=== PATIENT | male | born 1960 | race Caucasian/White ===

== ENCOUNTER 2022-02-07 06:12 | Day surgery (SDC) | payer BC ==
[2022-02-02 09:50] VITALS: BMI 22.5
[2022-02-07] MEDS ORDERED: Lidocaine 1% MPF 2 ML VIAL ONE (07:20)
[2022-02-07] MEDS ORDERED: Midazolam HCl 2 mg/2 ml Vial ONE (08:15)
[2022-02-07] MEDS ORDERED: Fentanyl 100 MCG/2 ML VIAL ONE ×5 (08:15→12:15)
[2022-02-07] MEDS ORDERED: ceFAZolin (BATCH) 2 GM/100 ML BAG ONE (09:46)
[2022-02-07] MEDS ORDERED: ePHEDrine 50 MG/ML VIAL ONE (10:04)
[2022-02-07] MEDS ORDERED: Ropivacaine 0.5% HCl/PF (150 MG/30 ML VIAL) ONE (10:04)
[2022-02-07] MEDS ORDERED: Ondansetron PF 4 MG/2 ML Vial ONE (10:04)
[2022-02-07] MEDS ORDERED: Ketorolac Tromethamine 30 MG/ML VIAL ONE (10:04)
[2022-02-07] MEDS ORDERED: Dexamethasone 20 MG/5 ML VIAL ONE (10:04)
[2022-02-07] MEDS ORDERED: PROPOFOL 200 MG/20 ML VIAL ONE (10:04)
[2022-02-07] MEDS ORDERED: Lidocaine 1% PF 5 ML VIAL ONE (10:04)
[2022-02-07] MEDS ORDERED: Bupivacaine 0.75% 10 ML VIAL ONE (11:26)
[2022-02-07] MEDS ORDERED: Lidocaine 1% w/Epinephrine 1:100K 20 ML VIAL ONE (11:26)
[2022-02-07] MEDS ORDERED: Promethazine HCl 25 MG/ML VIAL IM PRN ×2 (11:55→15:49)
[2022-02-07] MEDS ORDERED: Ondansetron HCl/PF 4 MG/2 ML Vial IVP PRN (11:55)
[2022-02-07] MEDS ORDERED: Promethazine HCl 25 MG/ML VIAL IVPB PRN (11:55)
[2022-02-07] MEDS ORDERED: Milk Of Magnesia 30 ML UDCUP PO PRN (15:49)
[2022-02-07] MEDS ORDERED: Morphine 4 MG/ML VIAL SLOW IVP PRN ×2 (15:49→16:17)
[2022-02-07] MEDS ORDERED: HYDROcodone/Acetaminophen 5/325 mg Tablet PO PRN ×2 (15:49)
[2022-02-07] MEDS ORDERED: Bisacodyl 10 MG SUPP PR PRN (15:49)
[2022-02-07] MEDS ORDERED: Ondansetron PF 4 MG/2 ML Vial IVP PRN (15:49)
[2022-02-07] MEDS ORDERED: Fentanyl 100 MCG/2 ML VIAL SLOW IVP PRN (15:49)
[2022-02-07] MEDS ORDERED: traMADol HCl 50 MG TAB PO PRN ×2 (15:49)
[2022-02-07] MEDS ORDERED: ceFAZolin 2 GM/Dextrose 50 ML 2 GM in Premix Bag 1 BAG IVPB SCH (16:00)
[2022-02-07] MEDS ORDERED: Warfarin Sodium 10 MG TAB PO SCH ×2 (17:00→17:50)
[2022-02-07] MEDS ORDERED: Warfarin Sodium 1 MG TAB PO SCH (17:45)
[2022-02-07] MEDS ORDERED: CEFAZOLIN 2 GM, Admixture Fee 1 EACH in Sodium Chloride 0.9% 100 ML IVPB SCH (18:45)
[2022-02-07] MEDS: Enoxaparin Sodium 80 MG/0.8 ML SYRINGE SC SCH (20:14)
[2022-02-08] MEDS ORDERED: CEFAZOLIN 2 GM, Admixture Fee 1 EACH in Sodium Chloride 0.9% 100 ML IVPB SCH (02:00)
[2022-02-08 05:16] VITALS: BP 100/62; TEMP 98.2
[2022-02-08 06:24] LABS: #Lymphocytes 1.5 thou/uL (1.20-3.40); #Monocytes 0.9 thou/uL (0.11-0.59); #Neutrophils 9.2 thou/uL (1.40-6.50); %Basophils 0.3 % (0.0-1.0); %Eosinophils 0.2 % (0.0-10.0); %Lymphocytes 12.7 % (21.0-51.0); %Monocytes 7.3 % (0.0-10.0); %Neutrophils 79.5 % (42.0-75.0); Hemoglobin 11.9 g/dL (14.0-18.0); Mean Corpuscular Hemoglobin 34.8 pg (27.0-31.0); Mean Platelet Volume 7.1 fL (7.4-10.4); Platelet Count 272 thou/uL (130-400); RBC Distribution Width 11.4 % (11.5-14.5); Red Blood Cell (RBC) Count 3.41 mill/uL (4.70-6.10); White Blood Cell (WBC) Count 11.6 thou/uL (4.8-10.8)
[2022-02-08] MEDS: Enoxaparin Sodium 80 MG/0.8 ML SYRINGE SC SCH (07:53)
[2022-02-08] MEDS ORDERED: Warfarin Sodium 10 MG TAB PO SCH (17:00)
[2022-02-08] MEDS ORDERED: Warfarin Sodium 1 MG TAB PO SCH (17:00)
== END 2022-02-08 14:53 | disposition home or self-care (01) ==
LOC: SDC 06:12 → T4-B 10:06 → SDC 02-08 14:53
PROVIDERS: ATTEND Orthopaedic Surgery
PROC: 0LQM0ZZ Repair Left Upper Leg Tendon, Open Approach (ICD-10-PCS; principal; 2022-02-07)
PROC: 3E0T3BZ Introduction of Anesthetic Agent into Peripheral Nerves and Plexi, Percutaneous Approach (ICD-10-PCS; principal; 2022-02-07)
DX: S76.112A Strain of left quadriceps muscle, fascia and tendon, initial encounter (principal); E78.5 Hyperlipidemia, unspecified; F17.210 Nicotine dependence, cigarettes, uncomplicated; Z79.01 Long term (current) use of anticoagulants; Z79.899 Other long term (current) drug therapy; Z95.2 Presence of prosthetic heart valve; W11.XXXA Fall on and from ladder, initial encounter
CPT/HCPCS: 36415; 85025; 85610; C1713; J0690; J1100; J1650; J1885; J2250; J2405; J2704; J2795; J3010; J3490

== ENCOUNTER 2025-06-17 13:17 | Outpatient (CLI) | payer OTHER ==
[~2025-06-17 13:17] MED LIST: Iopamidol 370 76% 100 ML VIAL ONE
[2025-06-17 13:45] LABS: Estimated GFR - POC 68.0
== END 2025-06-17 13:18 | disposition home or self-care (01) ==
LOC: CT 13:17
PROVIDERS: ATTEND Physician Assistant Medical
DX: I77.810 Thoracic aortic ectasia (principal)
CPT/HCPCS: 36415; 71275; 82565; Q9967